=== PATIENT | male | born 1970 ===

== ENCOUNTER 2024-01-15 06:00 | Day surgery (SDC) | payer OTHER ==
[~2024-01-15] VITALS: Ht 172.7 cm; Wt 97.5 kg
[~2024-01-15 06:00] MED LIST: COZAAR100 MG PO; NORVASC5 MG PO
[2024-01-15] MEDS ORDERED: CEFAZOLIN SODIUM 1,000 MG VIAL ONE (08:10)
[2024-01-15] MEDS ORDERED: TRIAMCINOLONE ACETONIDE 40 MG/ML VIAL ONE (08:48)
== END 2024-01-15 10:45 | disposition home or self-care (01) ==
LOC: CIR.AMB 06:00
PROVIDERS: ATTEND Surgery Surgery of the Hand
DX: M65.841 Other synovitis and tenosynovitis, right hand (principal); I10 Essential (primary) hypertension; G47.30 Sleep apnea, unspecified